=== PATIENT | female | born 1990 | race American Indian/Alaskan Native ===

== ENCOUNTER 2021-07-09 22:04 | Emergency (ER) | payer MEDICAID ==
[2021-07-10] MEDS ORDERED: SODIUM CHLORIDE 0.9% 1000 ML 1,000 ML IV ONE (02:20)
[2021-07-10 03:00] LABS: Basophils # (Auto) 0.1 K/mm3 (0.0-0.1); Eosinophils # (Auto) 0.1 K/mm3 (0.0-0.4); Eosinophils % (Auto) 1.2 % (0.0-4.3); Hematocrit 37.6 % (30.3-42.9); Hemoglobin 12.1 gm/dl (10.1-14.3); Lymphocytes # (Auto) 1.6 K/mm3 (1.2-5.4); Lymphocytes % (Auto) 26.8 % (13.4-35.0); Mean Corpuscular HGB Conc 32 % (30-34); Mean Corpuscular Volume 82 fl (79-97); Monocytes # (Auto) 0.5 K/mm3 (0.0-0.8); Monocytes % (Auto) 8.7 % (0.0-7.3); Platelet Count 285 K/mm3 (140-440); Red Cell Distribution Width 12.8 % (13.2-15.2)
[2021-07-10 03:26] LABS: Alanine Aminotransferase 16 units/L (7-56); Albumin 4.3 g/dL (3.9-5); Blood Urea Nitrogen 8 mg/dL (7-17); Calcium 9.4 mg/dL (8.4-10.2); Hemolysis Index 1
[2021-07-10 03:35] LABS: BUN/Creatinine Ratio 11
[2021-07-10 04:13] LABS: Hyaline Casts,Urine 1 /LPF; Mucus,Urine 3+ /HPF
[2021-07-10 04:17] LABS: Bilirubin,Urine Negative (Negative); Blood,Urine Negative (Negative); Color,Urine Yellow (Yellow); Urobilinogen,Urine < 2.0 mg/dL (<2.0)
--- NOTE | 2021-07-10 06:10 | Emergency Department Report ---
ED HPI - General Chief complaint: Abdominal Pain Stated complaint: NAUSEA/VOMITING (8 WKS ) Source: patient Mode of arrival: Ambulatory Limitations: No Limitations - History of Present Illness Initial comments: 30-year-old female presents to the ED complaining of nausea vomiting x1. She states that she is 8 weeks . Last menstrual cycle May 13 2022. Patient has been seen by [facility] TE[employer]ICAL OFF[employer]ER. Patient is 2 Par 1 A0. Patient states that she feels nauseated majority of the time and do not like to eat because of the nausea. She was concerned that her nausea was going to cause her miscarriage and states she came to the ED to make sure that the baby was okay. She is unsure of the next [employer] OFF[employer] appointment. She denies any abdominal pain or vaginal bleeding at present. Patient is alert and oriented x3. No acute distress noted. no ill appearance. Associated symptoms: denies other symptoms, nausea/vomiting Vaginal bleeding: none :: Yes - Related Data : 2 Para: 1 Ab: 0 Previous Rx's Medication Instructions Recorded Last Taken Type Nitrofurantoin [place]/M-Cryst 100 mg PO Q12HR 10 Days #20 capsule 07/10/21 Unknown Rx [Macrobid CAP] Allergies Allergy/AdvReac Type Severity Reaction Status Date / Time No Known Allergies Allergy Unverified 07/10/21 02:08 ED Review of Systems ROS: Stated complaint: NAUSEA/VOMITING (8 WKS ) Other details as noted in HPI Constitutional: denies: chills, fever Eyes: denies: eye pain, eye discharge, vision change ENT: denies: ear pain, throat pain Respiratory: denies: cough, shortness of breath, wheezing Cardiovascular: denies: chest pain, palpitations Endocrine: no symptoms reported Gastrointestinal: denies: abdominal pain, nausea, diarrhea Genitourinary: denies: urgency, dysuria, discharge Musculoskeletal: denies: back pain, joint swelling, arthralgia Skin: denies: rash, lesions Neurological: denies: headache, weakness, paresthesias Psychiatric: denies: anxiety, depression Hematological/Lymphatic: denies: easy bleeding, easy bruising ED Past Medical Hx - Medications Home Medications: Home Medications Medication Instructions Recorded Confirmed Last Taken Type Nitrofurantoin [place]/M-Cryst 100 mg PO Q12HR 10 Days #20 capsule 07/10/21 Unknown Rx [Macrobid CAP] ED Physical Exam - General Limitations: No Limitations ED Course Vital Signs 07/10/21 02:04 Temperature 98.2 F Pulse Rate 79 Respiratory 17 Rate Blood Pressure 113/80 [Right] O2 Sat by Pulse 97 Oximetry ED Medical Decision Making - Lab Data Result diagrams: 07/10/21 02:42 07/10/21 02:42 - Medical Decision Making 30-year-old female presents to the ED complaining of nausea vomiting x1. She states that she is . Last menstrual cycle May 13. Patient has be en seen by [facility] [employer]ICAL OFF[employer]ER. Patient is 2 Par 1 A0. Patient states that she feels nauseated majority of the time and do not like to eat because of the nausea. She was concerned that her nausea was going to cause her miscarriage and states she came to the ED to make sure that the baby was okay. She is unsure of the next [employer] OFF[employer]ER appointment. She denies any abdominal pain or vaginal bleeding at present. Patient is alert and oriented x3. No acute distress noted no ill appearance. Physical examination is unremarkable. Patient given 1 L of normal saline lab work drawn Urinalysis showed moderate leukocytes esterase moderate, WBCs 12.0 trace of ketones. Patient treated for acute UTI with Macrobid 100 mg twice daily for 5 days. Patient instructed to follow-up with the rafaela/sample checker. Rechecked the patient is resting quietly quietly and comfortable and feeling better. I discussed the results of diagnostic study, my clinical impression and the plan for further treatment with the patient. Patient agrees with plan and discharge at this present time. All question addressed. I have given the patient instruction regarding a diagnosis ,expectation ,follow- up and return precaution. I explained to the patient that emergent condition may arise and to return to the ED for new worsen and any new persisting condition. I have explained the importance of following up with the primary care physician or referral physician listed below has instructed. The patient verbalized understanding of discharge instruction. Critical care attestation.: If time is entered above; I have spent that time in minutes in the direct care of this critically ill patient, excluding procedure time. ED Disposition Clinical Impression: Nausea and vomiting during , Urinary tract infection affecting Disposition: 01 HOME / SELF CARE / HOMELESS Is pt being admited?: No Does the pt Need Aspirin: No Condition: Stable Instructions: Morning Sickness, and Urinary Tract Infection, Abdominal Pain (ED) Additional Instructions: Follow-up with your FIELD [employer] TECHNICAL OFFICER Return to the ED for any worsening symptom May take [id number] Benadryl to help with nausea Prescriptions: Nitrofurantoin [place]/M-Cryst [Macrobid CAP] 100 mg PO Q12HR 10 Days #20 capsule Referrals: [facility] [Provider Group] - 3-5 Days Forms: Work/School Release Form(ED) Time of Disposition: 06:17
[2021-07-10 06:54] VITALS: BP 113/69
== END 2021-07-10 06:45 | disposition home or self-care (01) ==
LOC: ED 22:04
DX: O26.891 Other specified pregnancy related conditions, first trimester (principal); O21.9 Vomiting of pregnancy, unspecified; O23.41 Unspecified infection of urinary tract in pregnancy, first trimester; N39.0 Urinary tract infection, site not specified; Z3A.08 8 weeks gestation of pregnancy
CPT/HCPCS: 36415; 80053; 81001; 84703; 85025; 86900; 86901; 87076; 87086; 87186; 96360; 99283; J7030; Q0162